=== PATIENT | male | born 1930 | race Caucasian/White ===

== ENCOUNTER 2016-12-10 10:14 | Observation (INO) | payer MEDICARE ==
[~2016-12-10] VITALS: Ht 175.3 cm; Wt 80.0 kg
[~2016-12-10 10:14] MED LIST: ARICEPT5 MG PO; ASPIRIN 32325 MG/TAB PO; CLOPIDOGREL PO; DOXYCYCLINE 10100 MG PO; FISH OIL CONC1000 MG PO; KLONOPIN 1MG1 MG PO; LAMICTAL 100MG100 MG PO; LEVOTHYROXINE0.05 M1 PO; LEVOXYL0.05 MG PO; LIPITOR 10MG10 MG PO; LOPRESSOR 225 MG/TAB PO; METOPROLOL SUCC25 MG PO; NAMENDA XR 28MG PO; NAMENDA5 MG PO; PRAVACHOL 40MG40 MG PO; RAZADYNE ER16 MG PO; REMERON SOLTAB30 MG PO; ZOFRAN ODT4 MG PO
[2016-12-10 11:24] LABS: BASO % 0.4 % (0.0-2.0); EOS # 0.1 (0.0-0.7); EOS % 2.5 % (0-4.0); GRAN # 3.1 (1.4-6.5); GRAN % 60.5 % (42.2-75.2); HEMATOCRIT 42.1 % (42.0-52.0); HEMOGLOBIN 14.6 g/dl (13.5-18.0); LYMPH # 1.3 (1.2-3.4); LYMPH % 25.7 % (20.0-51.0); MEAN CELL VOLUME 91 fl (80.0-100.0); MEAN CORPUSCULAR HEMOGLOBIN 31 pg (27.0-31.0); MEAN CORPUSCULAR HGB CONC 35 g/dl (33.0-37.0); MEAN PLATELET VOLUME 10.1 fl (7.4-10.4); MONO # 0.5 (0.1-0.6); MONO % 10.5 % (1.7-9.3); PLATELET COUNT 132 K/mm3 (130-400); RED BLOOD COUNT 4.65 M/mm3 (4.20-5.60); REDCELL DISTRIBUTION WIDTH-CV 13.5 % (11.5-14.5); WHITE BLOOD COUNT 5.1 K/mm3 (4.8-10.8)
[2016-12-10 11:31] LABS: ALANINE AMINOTRANSFERASE 31 U/L (21-72); ALBUMIN 4.6 gm/dL (3.5-5.0); ALKALINE PHOSPHATASE 70 U/L (50-136); ANION GAP 11 mmol/L (7-16); BLOOD UREA NITROGEN 22 mg/dL (9-20); CALCIUM 9.5 mg/dL (8.4-10.2); CARBON DIOXIDE 23 mmol/L (22-30); CHLORIDE 101 mmol/L (98-107); CREATININE, serum 1.37 mg/dL (0.66-1.25); GLUCOSE 87 mg/dL (74-106); LIPASE 50 U/L (23-300); POTASSIUM 4.4 mmol/L (3.4-5.0); SODIUM 135 mmol/L (137-145); TOTAL PROTEIN 7.2 gm/dL (6.4-8.2)
[2016-12-10 11:33] LABS: PROTHROMBIN TIME 11.4 SECONDS (9.7-12.8)
[2016-12-10 11:35] LABS: PARTIAL THROMBOPLASTIN TIME 34.1 SECONDS (26.0-37.0)
[2016-12-10 11:43] LABS: B-TYPE NATRIURETIC PEPTIDE 189 pg/mL (0-450); TROPONIN-I < 0.012 ng/mL (0.000-0.034)
[2016-12-10 14:42] VITALS: BP 150/59; PULSE 64; TEMP 97.5
[2016-12-10 16:11] VITALS: BP 155/75; PULSE 62; TEMP 97.4
[2016-12-10 16:14] VITALS: BP 150/59; PULSE 64; TEMP 97.5
[2016-12-10] MEDS ORDERED: ASPIRIN 81M81 MG/TA2 PO (20:19)
[2016-12-10 21:41] VITALS: BP 134/69; PULSE 60; TEMP 98.2
[2016-12-11] VITALS (10 sets, daily range): BP systolic 93–137; BP diastolic 43–97; PULSE 53–78; TEMP 97.3–98.3
[2016-12-11 07:05] LABS: ANION GAP 10 mmol/L (7-16); BLOOD UREA NITROGEN 22 mg/dL (9-20); CALCIUM 9.5 mg/dL (8.4-10.2); CARBON DIOXIDE 26 mmol/L (22-30); CHLORIDE 103 mmol/L (98-107); CHOLESTEROL 136 mg/dL (120-200); CREATININE, serum 1.37 mg/dL (0.66-1.25); GLUCOSE 83 mg/dL (74-106); HDL CHOLESTEROL 34 mg/dL; LDL CHOLESTEROL 60 mg/dL; POTASSIUM 4.4 mmol/L (3.4-5.0); SODIUM 139 mmol/L (137-145); TRIGLYCERIDE 212 mg/dL
[2016-12-11 07:18] LABS: TROPONIN-I < 0.012 ng/mL (0.000-0.034)
== END 2016-12-11 14:54 | disposition home or self-care (01) ==
LOC: COL.ER 10:14 → MEDICAL 12:30
PROVIDERS: Emergency Medicine; Physician Assistant
DX: I25.110 Atherosclerotic heart disease of native coronary artery with unstable angina pectoris (principal); I10 Essential (primary) hypertension; E78.5 Hyperlipidemia, unspecified; F03.90 Unspecified dementia, unspecified severity, without behavioral disturbance, psychotic disturbance, mood disturbance, and anxiety; E03.9 Hypothyroidism, unspecified; G47.33 Obstructive sleep apnea (adult) (pediatric); Z87.891 Personal history of nicotine dependence; M19.90 Unspecified osteoarthritis, unspecified site; I08.3 Combined rheumatic disorders of mitral, aortic and tricuspid valves; K21.9 Gastro-esophageal reflux disease without esophagitis; Z95.5 Presence of coronary angioplasty implant and graft; Z86.73 Personal history of transient ischemic attack (TIA), and cerebral infarction without residual deficits; N40.0 Benign prostatic hyperplasia without lower urinary tract symptoms; Z82.49 Family history of ischemic heart disease and other diseases of the circulatory system; Z80.3 Family history of malignant neoplasm of breast
CPT/HCPCS: 99222-AI; 99239; A9502; G0378; J2785

== ENCOUNTER → 2016-12-16 | Outpatient (CLI) | payer MEDICARE ==
[~2016-12-16] MED LIST changes: +ARICEPT10 MG PO; +ASPIRIN 81M81 MG/TA2 PO; +CEPHALEXIN500 M1 PO; +MULTI VITAMINS1 TAB PO; +NAMENDA 10MG TA10 MG PO; +OMEGA-3 1000 MG1 CAP PO; +REMERON30 MG PO; +SYNTHROID0.05 MG/TA PO; +TOPROL XL 25MG25 MG PO; +TYLENOL 325MG325 MG PO
== END ==
LOC: COL.VAS 14:00
DX: I65.23 Occlusion and stenosis of bilateral carotid arteries (principal); R07.9 Chest pain, unspecified

== ENCOUNTER 2017-01-05 07:04 | Outpatient (CLI) | payer MEDICARE ==
[~2017-01-05] VITALS: Ht 172.8 cm; Wt 82.0 kg
[2017-01-05] VITALS (12 sets, daily range): BP systolic 121–169; BP diastolic 60–86; PULSE 56–80; TEMP 96.9
[~2017-01-05 07:04] MED LIST changes: -ARICEPT10 MG PO; -CEPHALEXIN500 M1 PO; -MULTI VITAMINS1 TAB PO; -NAMENDA 10MG TA10 MG PO; -OMEGA-3 1000 MG1 CAP PO; -REMERON30 MG PO; -SYNTHROID0.05 MG/TA PO; -TOPROL XL 25MG25 MG PO; -TYLENOL 325MG325 MG PO
[2017-01-05 07:42] LABS: HEMOGLOBIN 14.2 g/dl (13.5-18.0); MEAN CELL VOLUME 91 fl (80.0-100.0); MEAN CORPUSCULAR HEMOGLOBIN 31 pg (27.0-31.0); MEAN CORPUSCULAR HGB CONC 35 g/dl (33.0-37.0); MEAN PLATELET VOLUME 9.9 fl (7.4-10.4); PLATELET COUNT 153 K/mm3 (130-400); RED BLOOD COUNT 4.52 M/mm3 (4.20-5.60); REDCELL DISTRIBUTION WIDTH-CV 13.5 % (11.5-14.5)
[2017-01-05 07:49] LABS: PROTHROMBIN TIME 11.5 SECONDS (9.7-12.8)
[2017-01-05 07:58] LABS: CALCIUM 9.3 mg/dL (8.4-10.2); CREATININE, serum 1.32 mg/dL (0.66-1.25); POTASSIUM 4.5 mmol/L (3.4-5.0)
[2017-01-05] MEDS ORDERED: ARICEPT10 MG PO (08:15)
[2017-01-05] MEDS ORDERED: SYNTHROID0.05 MG/TA PO (08:15)
[2017-01-05] MEDS ORDERED: REMERON30 MG PO (08:18)
[2017-01-05] MEDS ORDERED: TOPROL XL 25MG25 MG PO (08:18)
[2017-01-05] MEDS ORDERED: PRAVACHOL 40MG40 MG PO (08:20)
[2017-01-05] MEDS ORDERED: NAMENDA 10MG TA10 MG PO (08:20)
[2017-01-05] MEDS ORDERED: RAZADYNE ER16 MG PO (08:21)
[2017-01-05] MEDS ORDERED: OMEGA-3 1000 MG1 CAP PO (08:24)
[2017-01-05] MEDS ORDERED: MULTI VITAMINS1 TAB PO (08:24)
[2017-01-05] MEDS ORDERED: TYLENOL 325MG325 MG PO (08:25)
[2017-01-05] MEDS ORDERED: ASPIRIN 81M81 MG/TA2 PO (08:25)
[2017-01-05] MEDS ORDERED: CEPHALEXIN500 M1 PO (09:40)
== END 2017-01-05 11:17 | disposition home or self-care (01) ==
LOC: COL.RAD 07:04
PROVIDERS: Internal Medicine Cardiovascular Disease
DX: R55 Syncope and collapse (principal); Z45.018 Encounter for adjustment and management of other part of cardiac pacemaker; I25.10 Atherosclerotic heart disease of native coronary artery without angina pectoris; Z95.5 Presence of coronary angioplasty implant and graft; I10 Essential (primary) hypertension; E78.5 Hyperlipidemia, unspecified; R00.2 Palpitations; Z86.73 Personal history of transient ischemic attack (TIA), and cerebral infarction without residual deficits
CPT/HCPCS: C1764; J2250; J3010

== ENCOUNTER 2017-12-18 16:50 | Emergency (ER) | payer MEDICARE ==
[~2017-12-18] VITALS: Ht 175.3 cm; Wt 75.0 kg
[~2017-12-18 16:50] MED LIST changes: +ARICEPT10 MG PO; +CEPHALEXIN500 M1 PO; +MULTI VITAMINS1 TAB PO; +NAMENDA 10MG TA10 MG PO; +OMEGA-3 1000 MG1 CAP PO; +REMERON30 MG PO; +SYNTHROID0.05 MG/TA PO; +TOPROL XL 25MG25 MG PO; +TYLENOL 325MG325 MG PO
[2017-12-18] MEDS ORDERED: ARICEPT 5MG PO (17:17)
[2017-12-18 17:34] LABS: BASO % 0.3 % (0.0-2.0); EOS # 0.2 (0.0-0.7); EOS % 2.3 % (0-4.0); GRAN # 4.3 (1.4-6.5); HEMATOCRIT 37.9 % (42.0-52.0); HEMOGLOBIN 13.5 g/dl (13.5-18.0); INR 1.1 (0.8-3.0); LYMPH # 1.6 (1.2-3.4); LYMPH % 22.6 % (20.0-51.0); MEAN CELL VOLUME 90 fl (80.0-100.0); MEAN CORPUSCULAR HEMOGLOBIN 32 pg (27.0-31.0); MEAN CORPUSCULAR HGB CONC 36 g/dl (33.0-37.0); MEAN PLATELET VOLUME 9.6 fl (7.4-10.4); MONO # 0.8 (0.1-0.6); MONO % 11.2 % (1.7-9.3); PLATELET COUNT 161 K/mm3 (130-400); PROTHROMBIN TIME 12.2 SECONDS (9.7-12.8); RED BLOOD COUNT 4.22 M/mm3 (4.20-5.60); REDCELL DISTRIBUTION WIDTH-CV 13.7 % (11.5-14.5)
[2017-12-18 17:39] LABS: ALANINE AMINOTRANSFERASE 30 U/L (21-72); ALBUMIN 4.2 gm/dL (3.5-5.0); ALKALINE PHOSPHATASE 64 U/L (50-136); ANION GAP 12 mmol/L (7-16); AST,SGOT 34 U/L (15-37); BILIRUBIN,TOTAL 0.7 mg/dL (0.0-1.0); BLOOD UREA NITROGEN 25 mg/dL (9-20); CALCIUM 8.4 mg/dL (8.4-10.2); CARBON DIOXIDE 21 mmol/L (22-30); CHLORIDE 101 mmol/L (98-107); CREATINE KINASE 68 U/L (55-170); CREATININE, serum 1.23 mg/dL (0.66-1.25); GLUCOSE 102 mg/dL (74-106); LIPASE 38 U/L (23-300); POTASSIUM 4.2 mmol/L (3.4-5.0); SODIUM 133 mmol/L (137-145); TOTAL PROTEIN 6.8 gm/dL (6.4-8.2)
[2017-12-18 17:51] LABS: TROPONIN-I < 0.012 ng/mL (0.000-0.034)
[2017-12-18 20:28] VITALS: BP 175/92; PULSE 63
== END 2017-12-18 20:30 | disposition home or self-care (01) ==
LOC: COL.ER 16:50
PROVIDERS: Emergency Medicine
DX: R07.89 Other chest pain (principal); I10 Essential (primary) hypertension; I25.10 Atherosclerotic heart disease of native coronary artery without angina pectoris; Z98.890 Other specified postprocedural states; Z95.5 Presence of coronary angioplasty implant and graft; Z79.82 Long term (current) use of aspirin

== ENCOUNTER 2019-03-25 08:52 | Emergency (ER) | payer MEDICARE, OTHER ==
[~2019-03-25] VITALS: Ht 175.3 cm; Wt 81.8 kg
[~2019-03-25 08:52] MED LIST changes: +ARICEPT 5MG PO
[2019-03-25 09:21] LABS: ALANINE AMINOTRANSFERASE 21 U/L (21-72); ALBUMIN 4.5 gm/dL (3.5-5.0); ALKALINE PHOSPHATASE 70 U/L (50-136); ANION GAP 9 mmol/L (7-16); AST,SGOT 24 U/L (15-37); BILIRUBIN,TOTAL 0.6 mg/dL (0.0-1.0); BLOOD UREA NITROGEN 30 mg/dL (9-20); CALCIUM 9.3 mg/dL (8.4-10.2); CARBON DIOXIDE 26 mmol/L (22-30); CHLORIDE 103 mmol/L (98-107); CREATININE, serum 1.46 (0.66-1.25); GLUCOSE 91 mg/dL (74-106); LIPASE 60 U/L (23-300); POTASSIUM 4.7 mmol/L (3.4-5.0); SODIUM 138 mmol/L (137-145); TOTAL PROTEIN 7.3 gm/dL (6.4-8.2)
[2019-03-25 09:26] LABS: BASO % 0.4 % (0.0-2.0); EOS # 0.2 (0.0-0.7); EOS % 2.9 % (0-4.0); GRAN # 4.2 (1.4-6.5); GRAN % 60.2 % (42.2-75.2); HEMATOCRIT 41.5 % (42.0-52.0); LYMPH # 1.8 (1.2-3.4); LYMPH % 25.9 % (20.0-51.0); MEAN CELL VOLUME 94 fl (80.0-100.0); MEAN CORPUSCULAR HEMOGLOBIN 32 pg (27.0-31.0); MEAN CORPUSCULAR HGB CONC 34 g/dl (33.0-37.0); MEAN PLATELET VOLUME 9.6 fl (7.4-10.4); MONO # 0.7 (0.1-0.6); MONO % 10.3 % (1.7-9.3); PLATELET COUNT 158 K/mm3 (130-400); RED BLOOD COUNT 4.43 M/mm3 (4.20-5.60); REDCELL DISTRIBUTION WIDTH-CV 13.8 % (11.5-14.5)
[2019-03-25 09:34] LABS: TROPONIN-I < 0.012 ng/mL (0.000-0.035)
[2019-03-25] MEDS ORDERED: LEXAPRO 10MG10 MG PO (09:34)
[2019-03-25] MEDS ORDERED: NAMENDA 10MG TA10 MG PO (09:34)
[2019-03-25 09:48] LABS: PROTHROMBIN TIME 12.1 SECONDS (9.7-12.8)
[2019-03-25 10:15] VITALS: BP 157/64; PULSE 69
== END 2019-03-25 10:40 | disposition short-term general hospital (02) ==
LOC: COL.ER 08:52
PROVIDERS: Emergency Medicine
DX: I21.9 Acute myocardial infarction, unspecified (principal); I25.10 Atherosclerotic heart disease of native coronary artery without angina pectoris; Z86.73 Personal history of transient ischemic attack (TIA), and cerebral infarction without residual deficits; Z95.9 Presence of cardiac and vascular implant and graft, unspecified; Z79.82 Long term (current) use of aspirin
CPT/HCPCS: J1644; J7030

== ENCOUNTER 2020-01-03 05:45 | Day surgery (SDC) | payer MEDICARE ==
[2020-01-03] VITALS (11 sets, daily range): BP systolic 120–171; BP diastolic 37–68; PULSE 56–71; TEMP 97.4–98.6
[~2020-01-03 05:45] MED LIST changes: +LEXAPRO 10MG10 MG PO
[2020-01-03] MEDS ORDERED: SYNTHROID0.05 MG/TA PO (06:09)
[2020-01-03] MEDS ORDERED: ARICEPT10 MG PO (06:09)
[2020-01-03] MEDS ORDERED: NAMENDA 10MG TA10 MG PO (06:09)
[2020-01-03] MEDS ORDERED: TOPROL XL 50MG50 MG PO (06:10)
[2020-01-03] MEDS ORDERED: REMERON30 MG PO (06:11)
[2020-01-03] MEDS ORDERED: PRAVACHOL 40MG40 MG PO (06:11)
[2020-01-03] MEDS ORDERED: NITROSTAT0.4 MG/TAB SL (06:11)
[2020-01-03] MEDS ORDERED: EPA FISH OIL1 SGL PO (06:12)
[2020-01-03] MEDS ORDERED: TYLENOL PM EXTR1 TA1 PO (06:12)
[2020-01-03] MEDS ORDERED: ASPIRIN 81M81 MG/TA2 PO (06:12)
[2020-01-04 02:15] VITALS: BP 125/66
[2020-01-04 03:44] VITALS: BP 101/39; PULSE 66; TEMP 97.6
[2020-01-04 07:06] VITALS: BP 158/65; PULSE 67; TEMP 97.8
[2020-01-04 11:52] VITALS: BP 137/54; PULSE 63; TEMP 97.8
== END 2020-01-04 15:40 | disposition home or self-care (01) ==
LOC: SDCO 05:45 → SURG 09:06 → SDCO 09:06 → SURG 01-04 15:40
DX: N40.1 Benign prostatic hyperplasia with lower urinary tract symptoms (principal); R33.9 Retention of urine, unspecified; N39.490 Overflow incontinence; I25.10 Atherosclerotic heart disease of native coronary artery without angina pectoris; E78.00 Pure hypercholesterolemia, unspecified; I10 Essential (primary) hypertension; G30.9 Alzheimer's disease, unspecified; F02.80 Dementia in other diseases classified elsewhere, unspecified severity, without behavioral disturbance, psychotic disturbance, mood disturbance, and anxiety; M19.90 Unspecified osteoarthritis, unspecified site; Z86.73 Personal history of transient ischemic attack (TIA), and cerebral infarction without residual deficits; G89.29 Other chronic pain; Z87.891 Personal history of nicotine dependence
CPT/HCPCS: J0690; J2704; J7030; J7120

== ENCOUNTER 2020-02-22 18:57 | Inpatient (IN) | payer MEDICARE ==
[~2020-02-22] VITALS: Ht 170.2 cm; Wt 70.8 kg
[~2020-02-22 18:57] MED LIST changes: +EPA FISH OIL1 SGL PO; +NITROSTAT0.4 MG/TAB SL; +TOPROL XL 50MG50 MG PO; +TYLENOL PM EXTR1 TA1 PO
[2020-02-22 19:31] LABS: BASO % 0.1 % (0.0-2.0); EOS % 0.2 % (0-4.0); GRAN # 14.2 (1.4-6.5); GRAN % 85.8 % (42.2-75.2); HEMOGLOBIN 10.7 g/dl (13.5-18.0); LYMPH # 0.9 (1.2-3.4); LYMPH % 5.4 % (20.0-51.0); MEAN CELL VOLUME 90 fl (80.0-100.0); MEAN CORPUSCULAR HEMOGLOBIN 30 pg (27.0-31.0); MEAN CORPUSCULAR HGB CONC 33 g/dl (33.0-37.0); MEAN PLATELET VOLUME 8.2 fl (7.4-10.4); MONO # 1.3 (0.1-0.6); MONO % 7.8 % (1.7-9.3); PLATELET COUNT 245 K/mm3 (130-400); RED BLOOD COUNT 3.62 M/mm3 (4.20-5.60); REDCELL DISTRIBUTION WIDTH-CV 14.2 % (11.5-14.5)
[2020-02-22 19:34] LABS: HEMATOCRIT 32.6 % (42.0-52.0)
[2020-02-22 19:42] LABS: ALBUMIN 4.4 gm/dL (3.5-5.0); BILIRUBIN,TOTAL 0.6 mg/dL (0.0-1.0); CALCIUM 9.1 mg/dL (8.4-10.2); CREATININE, serum 2.34 (0.66-1.25); POTASSIUM 5.4 mmol/L (3.4-5.0); TOTAL PROTEIN 8.2 gm/dL (6.4-8.2)
[2020-02-22] MEDS ORDERED: VITAMIN C500 MG PO (19:42)
[2020-02-22 19:53] LABS: C-REACTIVE PROTEIN 17.9 mg/dL (0.0-0.9)
[2020-02-22 20:20] LABS: COLLECTION METHOD CATHETER
[2020-02-22 20:28] LABS: PH 5 (5-8); SQUAMOUS EPITHELIAL None Seen /hpf; URINE APPEARANCE Turbid; URINE BACTERIA Occasional /hpf; URINE BILIRUBIN Negative (NEGATIVE); URINE BLOOD 2+ (NEGATIVE); URINE COLOR Amber; URINE GLUCOSE Negative (NEGATIVE); URINE KETONE Negative (NEGATIVE); URINE LEUKOCYTE ESTERASE 2+ (NEGATIVE); URINE NITRATE Negative (NEGATIVE); URINE PROTEIN(semi-quant) 2+ (NEGATIVE); URINE RBC 20-50 /hpf; URINE UROBILINOGEN Negative (NEGATIVE)
[2020-02-22 21:45] VITALS: BP 116/49; PULSE 80; TEMP 98.4
[2020-02-23] VITALS (7 sets, daily range): BP systolic 134–163; BP diastolic 55–69; PULSE 77–102; TEMP 97.9–100.9
[2020-02-23 00:14] LABS: INR 1.3 (0.8-3.0); PROTHROMBIN TIME 14.8 SECONDS (9.7-12.8)
--- NOTE | 2020-02-23 02:57 | NUR ---
Patient is diaphoretic, cool and clammy at this time. He also has developed a tremor in his extremities and fingertips develop a decreased cap refill. Pulses are still present and strong. He is still confused, which is his baseline. [place] box provided, per patient request. BG is 112. Vital signs are stable and patient is afebrile. Charge nurse and greenhouse worker notified for further assessment. NS infusing and allen has adequate output. Will continue to monitor.
--- NOTE | 2020-02-23 05:39 | NUR ---
Partial bed bath and comfort measures provided. Patient is no longer diaphoretic and tremors have decreased. He has remained afebrile. He did have an episode of increased work of breathing which resolved within minutes. He is close to nurse's station and can be seen easily. Will continue to monitor.
[2020-02-23 06:30] LABS: MEAN CELL VOLUME 92 fl (80.0-100.0); MEAN CORPUSCULAR HGB CONC 33 g/dl (33.0-37.0); MEAN PLATELET VOLUME 8.7 fl (7.4-10.4); PLATELET COUNT 211 K/mm3 (130-400); REDCELL DISTRIBUTION WIDTH-CV 14.5 % (11.5-14.5)
[2020-02-23 06:38] LABS: INR 1.3 (0.8-3.0); PROTHROMBIN TIME 14.2 SECONDS (9.7-12.8)
[2020-02-23 06:41] LABS: HEMATOCRIT 27.5 % (42.0-52.0); HEMOGLOBIN 9.1 g/dl (13.5-18.0); MEAN CORPUSCULAR HEMOGLOBIN 30 pg (27.0-31.0)
[2020-02-23 06:41] LABS: ALBUMIN 3.5 gm/dL (3.5-5.0); BILIRUBIN,TOTAL 0.3 mg/dL (0.0-1.0); CREATININE, serum 1.89 (0.66-1.25); POTASSIUM 4.6 mmol/L (3.4-5.0); TOTAL PROTEIN 6.6 gm/dL (6.4-8.2)
[2020-02-23 07:35] LABS: BAND 8 % (0-10); LYMPHOCYTE 7 % (20.0-51.0); NEUTROPHILS 74 % (42.0-75.2); PLATELET ESTIMATE NORMAL (NORMAL)
--- NOTE | 2020-02-23 08:38 | NUR ---
Pt resting in bed at this time. Pt is very confused this morning, is only oriented to person. States he is not in pain at this time. Student Nurse, Lashanda will be assisting with patient today. Assessment completed, no further concerns. Bed alarm on, call light within reach.
--- NOTE | 2020-02-23 09:19 | NUR ---
Initial visit; Patient, though exhibiting confusion with his words seemed aware of Television Parts Tester visiting and was receptive to prayer.
--- NOTE | 2020-02-23 11:43 | NUR ---
Procurement Technician met with patient and patient's , Colette (ph#[phone]) to discuss discharge planning. Patient and Colette live in the [facility] [place] at [facility]. Patient sees Dr. Bermudez for primary care and has medications mailed to him by [facility]. Patient also obtains medications from [facility] as needed. Patient has a cane and walker at home. Patient reports he can take his own shower but sometimes Colette has to assist with getting dressed. Patient has Advance Directives in EMR and DPOA- designates Colette as primary then their sons, Aguilar and Tez. ALIE reviewed recommendation for Home Health services and provided Medicare.gov list of HH agencies. Colette advised they may want HH but they also would like to consider a skilled stay at [facility]. ALIE contacted Vincenzo at [facility] then faxed referral. ALIE requested COVID test from SUSAN Cheney and will continue to follow.
--- NOTE | 2020-02-23 13:45 | NUR ---
Primary nurse was assisted with [id number] patient care by [facility] student Dawn Rodriguez and [facility] instructor Judy Hurst RN-.
--- NOTE | 2020-02-23 14:58 | NUR ---
Pt sleeping at this time will continue to monitor.
--- NOTE | 2020-02-23 21:30 | NUR ---
Pt assessment completed and charted, alert, not fully oriented, roomair. Meds provided as per JUL, tolerated well. Pt is settled on his bed, call light on reach, bed alaram is on. Folley and I/V on place. No further needs at this time.
[2020-02-24 03:11] VITALS: BP 179/70; PULSE 84; TEMP 98
[2020-02-24 04:14] VITALS: BP 142/67
--- NOTE | 2020-02-24 05:23 | NUR ---
Pt had an uneventful night. Morning meds provided as per JUL. No further needs at this time.
[2020-02-24 07:14] LABS: BASO % 0.2 % (0.0-2.0); EOS # 0.1 (0.0-0.7); EOS % 0.6 % (0-4.0); GRAN # 9.8 (1.4-6.5); GRAN % 80.1 % (42.2-75.2); HEMATOCRIT 26.6 % (42.0-52.0); HEMOGLOBIN 8.7 g/dl (13.5-18.0); LYMPH # 1.1 (1.2-3.4); LYMPH % 9.4 % (20.0-51.0); MEAN CELL VOLUME 92 fl (80.0-100.0); MEAN CORPUSCULAR HEMOGLOBIN 30 pg (27.0-31.0); MEAN CORPUSCULAR HGB CONC 33 g/dl (33.0-37.0); MEAN PLATELET VOLUME 8.8 fl (7.4-10.4); MONO # 1.1 (0.1-0.6); MONO % 8.7 % (1.7-9.3); PLATELET COUNT 194 K/mm3 (130-400); REDCELL DISTRIBUTION WIDTH-CV 14.4 % (11.5-14.5)
[2020-02-24 07:17] LABS: INR 1.3 (0.8-3.0); PROTHROMBIN TIME 14.9 SECONDS (9.7-12.8)
[2020-02-24 07:28] LABS: ALBUMIN 3.4 gm/dL (3.5-5.0); BILIRUBIN,TOTAL 0.4 mg/dL (0.0-1.0); CALCIUM 8.1 mg/dL (8.4-10.2); CREATININE, serum 1.77 (0.66-1.25); POTASSIUM 4.1 mmol/L (3.4-5.0); TOTAL PROTEIN 6.6 gm/dL (6.4-8.2)
--- NOTE | 2020-02-24 07:29 | NUR ---
Pt in bed has no c/o pain or discomfort. Assessment completed. Call light within reach. No further concerns at this time. Student Nurse Dawn is assissting today.
--- NOTE | 2020-02-24 07:44 | NUR ---
Pt resting in bed at this time and appears to be in good spirits, laughing and asking questions about cares being provided. Patient is currently watching the news and drinking a glass of water. Will continue to monitor.
[2020-02-24 07:47] VITALS: BP 157/58; PULSE 80; TEMP 98.6
[2020-02-24 12:10] VITALS: BP 100/47; PULSE 67; TEMP 98.6
--- NOTE | 2020-02-24 13:37 | NUR ---
Primary nurse was assisted with [id number] patient care by [facility] student Dawn Rodriguez and [facility] instructor Judy Hurst RN-.
[2020-02-24 16:11] VITALS: BP 141/69; PULSE 75; TEMP 97.6
[2020-02-24 19:58] VITALS: BP 130/56; PULSE 80; TEMP 99.2
--- NOTE | 2020-02-24 21:15 | NUR ---
Pt assessment completed and documented. Pt resting in bed at this time. Pt alert and oriented to person, place and time. Pt disoriented to situation. IVF infusing per order to left AC IV. Denies pain. Pt denies any other needs/concerns at this time. Call light within reach. Fall precautions in place. Bed alarm on. Will continue to monitor.
[2020-02-25] VITALS (7 sets, daily range): BP systolic 131–169; BP diastolic 48–77; PULSE 70–86; TEMP 97.5–98.7
--- NOTE | 2020-02-25 05:12 | NUR ---
Pt has rested well overnight. Pt has remained partially oriented throughout the night. No complaints of pain. IVF infusing per orders. Pt denies any needs/concerns at this time. Call light within reach. Bed alarm on. Will continue to monitor
[2020-02-25 06:30] LABS: BASO % 0.3 % (0.0-2.0); EOS # 0.3 (0.0-0.7); EOS % 3.5 % (0-4.0); GRAN % 76.3 % (42.2-75.2); LYMPH # 0.9 (1.2-3.4); LYMPH % 9.4 % (20.0-51.0); MEAN CELL VOLUME 90 fl (80.0-100.0); MEAN CORPUSCULAR HGB CONC 33 g/dl (33.0-37.0); MEAN PLATELET VOLUME 8.9 fl (7.4-10.4); MONO # 0.9 (0.1-0.6); MONO % 9.4 % (1.7-9.3); PLATELET COUNT 202 K/mm3 (130-400); RED BLOOD COUNT 2.83 M/mm3 (4.20-5.60); REDCELL DISTRIBUTION WIDTH-CV 14.2 % (11.5-14.5)
[2020-02-25 06:35] LABS: INR 1.3 (0.8-3.0); PROTHROMBIN TIME 14.5 SECONDS (9.7-12.8)
--- NOTE | 2020-02-25 06:40 | NUR ---
PATIENT SLEEPING IN BED.
[2020-02-25 06:41] LABS: ALBUMIN 3.2 gm/dL (3.5-5.0); BILIRUBIN,TOTAL 0.4 mg/dL (0.0-1.0); CALCIUM 8.1 mg/dL (8.4-10.2); CREATININE, serum 1.72 (0.66-1.25); POTASSIUM 4.3 mmol/L (3.4-5.0); TOTAL PROTEIN 6.1 gm/dL (6.4-8.2)
[2020-02-25 06:42] LABS: HEMATOCRIT 25.5 % (42.0-52.0); HEMOGLOBIN 8.3 g/dl (13.5-18.0); MEAN CORPUSCULAR HEMOGLOBIN 29 pg (27.0-31.0)
--- NOTE | 2020-02-25 08:16 | NUR ---
PATIENT ASSESSMENT COMPLETED. HE IS ASSISTED UP TO THE CHAIR FOR BREAKFAST. DENIES PAIN OR OTHER NEEDS. EATING BREAKFAST ON HIS OWN
--- NOTE | 2020-02-25 20:06 | NUR ---
Pt assessment completed and documented. Pt resting in bed at this time watching television. Pt alert and oriented to person and time. Pt disoriented to place and situation. IVF infusing per orders to right AC IV. Pt denies pain. Pt denies any needs/concerns at this time. Call light within reach. Fall precautions in place. Bed alarm on. Will continue to monitor
[2020-02-26 03:23] VITALS: BP 168/68; PULSE 74; TEMP 98.3
--- NOTE | 2020-02-26 05:45 | NUR ---
Pt awake most of the night. States he was unable to sleep because he rested yesterday afternoon. Pt remained pleasantly confused overnight and was only oriented to time and person. Pt disoriented to place and situation during the night. IVF infusing per orders to right AC IV. Pt denies any needs/ concerns. Call light within reach. Bed alarm on. WIll continue to monitor
[2020-02-26 07:10] LABS: MEAN CELL VOLUME 90 fl (80.0-100.0); MEAN CORPUSCULAR HGB CONC 33 g/dl (33.0-37.0); MEAN PLATELET VOLUME 9.2 fl (7.4-10.4); PLATELET COUNT 231 K/mm3 (130-400); RED BLOOD COUNT 3.01 M/mm3 (4.20-5.60); REDCELL DISTRIBUTION WIDTH-CV 14.2 % (11.5-14.5)
[2020-02-26 07:17] LABS: HEMOGLOBIN 8.9 g/dl (13.5-18.0); MEAN CORPUSCULAR HEMOGLOBIN 30 pg (27.0-31.0)
[2020-02-26 07:23] LABS: CALCIUM 8.3 mg/dL (8.4-10.2); CREATININE, serum 1.63 (0.66-1.25); POTASSIUM 4.1 mmol/L (3.4-5.0)
[2020-02-26 07:47] VITALS: BP 135/68; PULSE 78; TEMP 97.5
--- NOTE | 2020-02-26 08:02 | NUR ---
PATIENT ASSESSMENT COMPLETED. WE WENT FOR A WALK WITH GAITBELT AND WALKER. WE WALKED FROM ROOM 313 TO THE JOINT DESK AND BACK. HE TOLERATES WELL. BREAKFAST HAS ARRIVED AND NO OTHER NEEDS EXPRESSED
--- NOTE | 2020-02-26 08:04 | NUR ---
PATIENT IS SLIGHLTY CONFUSED THIS MORNING HE KNOWS MONTH AND YEAR BUT STRUGGLES WITH HOSPITAL BUT ALSO IS TALKING ABOUT THE BUS BREAKING DOWN AND HAVING PEOPLE ON THE BUS. HE IS ALSO SITTING THERE EATING BREAKFAST TRYING TO TALK TO HIS THAT IS CURRENTLY NOT HERE SHE IS AT HOME. CHAIR ALARM ON
[2020-02-26 09:05] LABS: BAND 10 % (0-10); EOSINOPHIL 3 % (0-4); LYMPHOCYTE 16 % (20.0-51.0); NEUTROPHILS 64 % (42.0-75.2)
[2020-02-26 09:06] LABS: PLATELET ESTIMATE NORMAL (NORMAL)
[2020-02-26 11:37] VITALS: BP 98/47; PULSE 71; TEMP 97.5
--- NOTE | 2020-02-26 14:15 | NUR ---
Provider inquired about patients currently living conditions, and services available for patient after discharge. ALIE reviewed previous notes and determined carla jiménez resides at [facility] independent living with his Colette [phone]. ALIE contacted Tanmay at [facility] to inquire about patient receiving skilled services. Vincenzo replied that patient would be able to receive service if he med stay requirments. ALIE informed provider, who indicated that patient would be released tomorrow.
[2020-02-26 16:03] VITALS: BP 136/64; PULSE 77; TEMP 97.4
--- NOTE | 2020-02-26 19:00 | NUR ---
Pt was setting on recliner when this nurse went for bedside handover. Pt seems relaxed and was watching television. Will keep monitoring him.
[2020-02-26 19:15] VITALS: BP 137/92; PULSE 77; TEMP 97.7
--- NOTE | 2020-02-26 22:53 | NUR ---
Pt assessment completed and charted, alert but not fully oriented, roomair. Meds provided as per JUL, tolerated well. Pt is settled on his bed, call light on reach, bed alarm is on. No further needs at this time.
[2020-02-26 23:34] VITALS: BP 154/78; PULSE 75; TEMP 97.8
[2020-02-27 03:28] VITALS: BP 151/77; PULSE 72; TEMP 97.9
--- NOTE | 2020-02-27 05:23 | NUR ---
Pt had an uneventful night, slept ton and off through out the light. No further needs at this time.
[2020-02-27 07:38] VITALS: BP 138/76; PULSE 65; TEMP 97.6
[2020-02-27] MEDS ORDERED: NORVASC 5MG5 MG/TAB PO (09:46)
[2020-02-27] MEDS ORDERED: LEVAQUIN 750MG750 M1 PO (09:53)
--- NOTE | 2020-02-27 10:54 | NUR ---
First visit from the returned goods sorter. No needs right now.
--- NOTE | 2020-02-27 11:12 | NUR ---
Patient alert and oriented to self only, denies any pain at this time. Patient sit up in bed to eat breakfast this morning. visiting at bedside. The plan is for patient to discharge to [facility] nurse facility.
[2020-02-27 11:46] VITALS: BP 119/46; PULSE 59; TEMP 97.7
[2020-02-27 13:43] VITALS: BP 119/46; PULSE 59; TEMP 97.7
--- NOTE | 2020-02-27 13:44 | NUR ---
The patient is to discharge today, 02/26 to [facility] for a skilled stay. Then he will go back to his home at [facility]. The patient is to be transported at 1415. The team, the patient, and the patient's , Colette were in agreeance. SW faxed discharge orders. ALIE presented the IM form to the patient and Colette. They understood and the patient wanted Colette to sign the form. Form signed. A copy was provided to the patient and original was placed in the chart. There are no additional needs at this time.
--- NOTE | 2020-02-27 14:48 | NUR ---
RN called [facility] to give transfer report to Nurse Mani. Patient remain afebrile, moderate confusion without any agitation. WBC within limit.INT on left forearm discontinued. Spouse help gather patient's belongings. patient was started on Levaquin 750mg Q48H, first dose was giving this am, the remaining two dose should be taken 02/28, 03/02. Instruction given to recieving nurse. Patient discharging with Leach catheter with a followup appointment with Urology. Patient discharged.
== END 2020-02-27 14:45 | disposition home or self-care (01) | DRG 871 ==
LOC: COL.ER 18:57 → MEDICAL 20:31
PROVIDERS: Internal Medicine Pulmonary Disease; Nurse Practitioner; ADMIT Internal Medicine
DX: A41.9 Sepsis, unspecified organism (principal); G93.41 Metabolic encephalopathy; N17.9 Acute kidney failure, unspecified; N39.0 Urinary tract infection, site not specified; R65.20 Severe sepsis without septic shock; N40.1 Benign prostatic hyperplasia with lower urinary tract symptoms; R33.8 Other retention of urine; E87.5 Hyperkalemia; I25.10 Atherosclerotic heart disease of native coronary artery without angina pectoris; F03.90 Unspecified dementia, unspecified severity, without behavioral disturbance, psychotic disturbance, mood disturbance, and anxiety; E03.9 Hypothyroidism, unspecified; E11.22 Type 2 diabetes mellitus with diabetic chronic kidney disease; I12.9 Hypertensive chronic kidney disease with stage 1 through stage 4 chronic kidney disease, or unspecified chronic kidney disease; N18.30 Chronic kidney disease, stage 3 unspecified; Z95.5 Presence of coronary angioplasty implant and graft
CPT/HCPCS: 99223-AI; 99232-AI; 99233-AI; 99239; J0360; J0692; J0696; J1644; J2543; J7030

== ENCOUNTER 2020-05-09 09:48 | Inpatient (IN) | payer MEDICARE ==
[~2020-05-09] VITALS: Ht 175.3 cm; Wt 79.3 kg
[~2020-05-09 09:48] MED LIST changes: +LEVAQUIN 750MG750 M1 PO; +NORVASC 5MG5 MG/TAB PO; +VITAMIN C500 MG PO
[2020-05-09 10:34] LABS: BASO % 0.2 % (0.0-2.0); EOS # 0.2 (0.0-0.7); EOS % 1.8 % (0-4.0); GRAN # 7.1 (1.4-6.5); GRAN % 69.6 % (42.2-75.2); HEMOGLOBIN 11.1 g/dl (13.5-18.0); LYMPH # 1.7 (1.2-3.4); LYMPH % 16.2 % (20.0-51.0); MEAN CELL VOLUME 91 fl (80.0-100.0); MEAN CORPUSCULAR HEMOGLOBIN 30 pg (27.0-31.0); MEAN CORPUSCULAR HGB CONC 33 g/dl (33.0-37.0); MEAN PLATELET VOLUME 9.1 fl (7.4-10.4); MONO # 1.2 (0.1-0.6); MONO % 11.5 % (1.7-9.3); PLATELET COUNT 202 K/mm3 (130-400); RED BLOOD COUNT 3.76 M/mm3 (4.20-5.60); REDCELL DISTRIBUTION WIDTH-CV 15.5 % (11.5-14.5)
[2020-05-09 10:36] LABS: INR 1.2 (0.8-3.0); PROTHROMBIN TIME 13.4 SECONDS (9.7-12.8)
[2020-05-09 10:37] LABS: HEMATOCRIT 34.1 % (42.0-52.0)
[2020-05-09 10:42] LABS: ALANINE AMINOTRANSFERASE 17 U/L (4-49); ALBUMIN 4.2 gm/dL (3.5-5.0); ALKALINE PHOSPHATASE 76 U/L (50-136); ANION GAP 10 mmol/L (7-16); AST,SGOT 24 U/L (15-37); BILIRUBIN,TOTAL 0.6 mg/dL (0.0-1.0); BLOOD UREA NITROGEN 54 mg/dL (9-20); CALCIUM 9.2 mg/dL (8.4-10.2); CARBON DIOXIDE 21 mmol/L (22-30); CHLORIDE 105 mmol/L (98-107); CREATININE, serum 3.13 (0.66-1.25); GLUCOSE 93 mg/dL (74-106); POTASSIUM 4.8 mmol/L (3.4-5.0); SODIUM 136 mmol/L (137-145); TOTAL PROTEIN 7.3 gm/dL (6.4-8.2)
[2020-05-09 10:53] LABS: C-REACTIVE PROTEIN 24.2 mg/dL (0.0-0.9); TROPONIN-I < 0.012 ng/mL (0.000-0.035)
[2020-05-09] MEDS ORDERED: NAMENDA 10MG TA10 MG PO (11:25)
[2020-05-09 12:07] LABS: COLLECTION METHOD CATHETER
[2020-05-09 12:17] LABS: PH 6 (5-8); SQUAMOUS EPITHELIAL None Seen /hpf; URINE APPEARANCE Turbid; URINE BACTERIA Moderate /hpf; URINE BILIRUBIN Negative (NEGATIVE); URINE BLOOD 2+ (NEGATIVE); URINE COLOR Amber; URINE GLUCOSE Negative (NEGATIVE); URINE KETONE Negative (NEGATIVE); URINE LEUKOCYTE ESTERASE 2+ (NEGATIVE); URINE NITRATE Positive (NEGATIVE); URINE PROTEIN(semi-quant) 2+ (NEGATIVE); URINE RBC >50 /hpf; URINE UROBILINOGEN Negative (NEGATIVE)
[2020-05-09 16:07] VITALS: BP 176/70; PULSE 76; TEMP 98.5
--- NOTE | 2020-05-09 16:15 | NUR ---
Pt arrived to floor at this time via cart with ER staff. Transferred over to bed wit hassistance of two. Pt resting in bed, asking repeatedly about , explained visitor policy. Will continue to monitor.
[2020-05-09 16:24] LABS: CREATININE, serum 2.71 (0.66-1.25)
[2020-05-09 17:54] LABS: FRACTIONAL EXCRETION OF NA+ 3.2 %
--- NOTE | 2020-05-09 18:33 | NUR ---
Assessment charted. Resting in bed, has not set off bed alarm but requires reorientation every time in room. Urine is yellow with lots of seidment and hazy. Bed alarm on, will give bedside shift report to nightshift nurse who will resume care.
--- NOTE | 2020-05-09 19:12 | NUR ---
Received report from Linda. Seen patient awake in bed. He is alert, disoriented and confused. Linda RN, called his so patient can talk to her as he is becoming confused thinking his was with him in the room. Bed alarm on. On fall precautions.
[2020-05-09 21:23] VITALS: BP 143/65; PULSE 89; TEMP 99.9
--- NOTE | 2020-05-09 21:40 | NUR ---
Assesment done. Patient denies pain. Leach catheter draining hazy yellow urine. Patient denies pain. He is oriented to person and knows his birthday but he cannot tell where he is right now. Reorientation implemented.
[2020-05-09 21:43] VITALS: TEMP 98.1
--- NOTE | 2020-05-09 23:35 | NUR ---
Rounds done. Seen patient's blanket with some blood. Turned on the lights, saw patient having some nose bleed on his right nostril. Placed patient on a sitting position on bed and tried pinching his nose to stop the bleeding. Blood clots noted coming out. Vital signs taken. BP= 159/62, HR= 90, Temp=98, SPO2= 98% on room air, RR= 20. Patient denies pain. Tried calling Nancie DAVIS but no answer.
[2020-05-09 23:50] VITALS: BP 159/62; PULSE 90; TEMP 98
[2020-05-10] VITALS (8 sets, daily range): BP systolic 125–177; BP diastolic 47–76; PULSE 79–85; TEMP 97.7–100.4
--- NOTE | 2020-05-10 00:20 | NUR ---
At 0005H Nancie DAVIS called back and I informed her about the nose bleed of the patient. At 0010H, Nancie came in to see and assess the patient. She asked if patient had nose bleed in the past and the patient said yes. We tried to ask the patient to blow his nose to get the clots but patient refused. Re-checked his blood pressure and it was at 177/75. Nancie ordered Afrin nasal spray and Labetalol for his blood pressure.
--- NOTE | 2020-05-10 02:30 | NUR ---
Nose bleed has stopped. Patient is becoming more restless and confused. He was trying to get out of bed and wanting to go home. This nurse called Nancie DAVIS to ask for Ativan and she put an order in. Repositioned patient to bed and reoriented him. Side rails up and bed alarm maintained on all the time.
[2020-05-10 06:54] LABS: CALCIUM 8.5 mg/dL (8.4-10.2); CREATININE, serum 2.38 (0.66-1.25); POTASSIUM 4.6 mmol/L (3.4-5.0)
[2020-05-10 06:55] LABS: BASO % 0.2 % (0.0-2.0); EOS # 0.1 (0.0-0.7); EOS % 1.6 % (0-4.0); GRAN # 6.4 (1.4-6.5); GRAN % 71.5 % (42.2-75.2); HEMOGLOBIN 10.6 g/dl (13.5-18.0); LYMPH # 1.3 (1.2-3.4); LYMPH % 14.5 % (20.0-51.0); MEAN CELL VOLUME 92 fl (80.0-100.0); MEAN CORPUSCULAR HEMOGLOBIN 30 pg (27.0-31.0); MEAN CORPUSCULAR HGB CONC 33 g/dl (33.0-37.0); MEAN PLATELET VOLUME 9.2 fl (7.4-10.4); MONO % 11.5 % (1.7-9.3); PLATELET COUNT 166 K/mm3 (130-400); RED BLOOD COUNT 3.52 M/mm3 (4.20-5.60); REDCELL DISTRIBUTION WIDTH-CV 15.2 % (11.5-14.5)
--- NOTE | 2020-05-10 07:00 | NUR ---
Patient finally fell asleep at around 0430H. Nose bleed stopped already. Bed alarm on. Endorsed to day shift.
[2020-05-10 07:08] LABS: HEMATOCRIT 32.2 % (42.0-52.0)
--- NOTE | 2020-05-10 08:50 | NUR ---
PATIENT SHIFT ASSESSMENT COMPLETED AND MORNING MEDICATIONS ADMINISTERED AT THIS TIME. PATIENT SITTING UP IN THE BEDSIDE CHAIR. PATIENT DENIES PAIN AT THIS TIME. CALL LIGHT IN REACH AND BED ALARM ON.
--- NOTE | 2020-05-10 11:36 | NUR ---
The patient has underlying dementia. SW contacted the patient's , Colette (ph#[phone]), to discuss discharge plan. The patient lives in [place] with his at [facility]. Colette reports that the patient was independent with ADLs up until Thursday and that he has a cane and walker. He also receives home health services for long-term from [facility] and a RECREATION ASSISTANT comes two hours in the morning and two hours in the evening to assist the patient. Colette reports that the patient was receiving PT/OT/ST from them, but he graduated from those services. The patient's PCP is Dr. Destin Bermudez and he receives his medications from [facility]. Colette reports no difficulties obtaining his meds. The patient's DPOA-HC is in EMR and it designates his . PT/OT are recommending SNF/post-acute rehab. SW discussed this with Colette and the different options. Colette verbalized understanding and states that the patient will come home. She states that she was an MD OPHTHALMOLOGIST at [facility] and understands the recommendations, but she feels comfortable with the patient returning back home with her and resuming home health services from [facility]. ALIE updated the PA. ALIE contacted and faxed updates to Taryn at [facility]. Taryn reports that they can accept the patient for services. SW to continue to follow.
--- NOTE | 2020-05-10 12:30 | NUR ---
UPON ENTRY TO THE ROOM THE PATIENT IS SITTING UP IN THE CHAIR WITH HIS LUNCH TRAY. CLEAR DRAINAGE COMING FROM THE RIGHT NARE THAT WAS SLIGHTLY BLOOD TINGED WHEN PATIENT BLEW HIS NOSE. NO ADDITIONAL BLEEDING AFTER PATIENT BLEW HIS NOSE. WILL CONTINUE TO MONITOR.
--- NOTE | 2020-05-10 13:34 | NUR ---
First visit from the first sampler. No needs right now.
--- NOTE | 2020-05-10 19:00 | NUR ---
PATIENT HAD AN UNEVENTFUL SHIFT. PATIENT DENIED PAIN THROUGHOUT THE DAY. NEURO CHECKS STABLE. PATIENT IS A&O TO SELF. PATIENT IS INTERMITTENTLY ORIENTED TO TOWN AND YEAR, BUT NOT CONSISTENTLY. PATIENTS CONVERSATION IS CONFUSED, HE OCCASSIONALLY REACHES OUT IN THE AIR, AND HAS HALLUCINATIONS OF PEOPLE AND EVENTS THAT ARE NOT THERE. PATIENT ABLE TO FOLLOW COMMANDS. PATIENT IS PLEASANT. REPORT GIVEN TO ONCOMING NURSE.
--- NOTE | 2020-05-10 22:30 | NUR ---
PT IN BED. TAKES HS MEDS IN APPLESAUCE WITHOUT PROBLEM. IS ALERT TO SELF. PROVIDED CATHETER CARE AND SHAVE AT THIS TIME. HAS IVF INFUSING TO LEFT FOREARM WITHOUT PROBLEM. SCDS ON BILATERAL LOWER LEGS. OCCASIONALLY TALKING TO SELF AND HAVING HALLUCINATIONS OF PEOPLE NOT IN THE ROOM.
[2020-05-11] VITALS (7 sets, daily range): BP systolic 129–185; BP diastolic 56–97; PULSE 66–85; TEMP 97.5–98.6
--- NOTE | 2020-05-11 00:13 | NUR ---
PT BEING AGGRESSIVE, TRYING TO CLIMB OVER RAILS. THREATENS TO HIT STAFF. ORDER FOR CAROL ANN RECEIVED FROM LEYLA TREVINO. GIVEN AT THIS TIME.
--- NOTE | 2020-05-11 02:00 | NUR ---
RESTING WELL AFTER GIVEN HALDOL FOR AGITATION.
[2020-05-11 07:25] LABS: BASO % 0.4 % (0.0-2.0); CALCIUM 8.8 mg/dL (8.4-10.2); CREATININE, serum 1.79 (0.66-1.25); EOS # 0.5 (0.0-0.7); EOS % 5.9 % (0-4.0); GRAN % 64.1 % (42.2-75.2); HEMATOCRIT 31.8 % (42.0-52.0); HEMOGLOBIN 10.6 g/dl (13.5-18.0); LYMPH # 1.3 (1.2-3.4); LYMPH % 17.2 % (20.0-51.0); MEAN CELL VOLUME 90 fl (80.0-100.0); MEAN CORPUSCULAR HEMOGLOBIN 30 pg (27.0-31.0); MEAN CORPUSCULAR HGB CONC 33 g/dl (33.0-37.0); MEAN PLATELET VOLUME 8.9 fl (7.4-10.4); MONO # 0.9 (0.1-0.6); MONO % 11.8 % (1.7-9.3); PLATELET COUNT 173 K/mm3 (130-400); POTASSIUM 4.4 mmol/L (3.4-5.0); RED BLOOD COUNT 3.55 M/mm3 (4.20-5.60); REDCELL DISTRIBUTION WIDTH-CV 14.9 % (11.5-14.5)
--- NOTE | 2020-05-11 16:22 | NUR ---
THIS NURSE WAS ON THE PHONE WITH SUSAN HENRY REGARDING THE PATIENTS HEPARIN. WHEN THIS NURSE TURNED AROUND AT THE DESK TO LOOK INTO THE PATIENTS ROOM, HE PULLED OUT HIS IV AND TOSSED THE TUBING OFF THE BED. PATIENT REQUESTED SCD'S AND SOCKS BE TAKEN OFF. PATIENT SETTELED BACK IN BED. PATIENT STATES THAT HE IS CONFUSED. PATIENT RE-ORIENTED AND EDUCATED THAT A NEW IV WILL NEED TO BE PLACED FOR HIS IV ANTIBIOTICS AND FLUIDS TO TREAT HIS INFECTION. PATIENT VERBALIZES UNDERSTANDING.
--- NOTE | 2020-05-11 19:01 | NUR ---
PATIENT RESTING IN BED AND TALKING WITH HIS ON THE PHONE. PATIENT REFUSED DINNER. PATIENT DRINKING AN ENSURE CHOCOLATE SHAKE FOR DINNER. CALL LIGHT IN REACH. BED ALARM ON. BEDSIDE REPORT GIVEN TO WESTON BARILLAS.
--- NOTE | 2020-05-11 21:16 | NUR ---
PT STARTING TO RESIST CARES, CONFUSED TO PLACE AND TIME. SEROQUEL 25MG PO WITH HS MEDS.
--- NOTE | 2020-05-11 21:20 | NUR ---
PT TAKES CHOCOLATE PUDDING FED TO HIM WITH HIS PILLS. IS ELIM IRA, CONFUSED TO PLACE AND TIME. HAS IVF INFUSING TO LEFT FOREARM WITHOUT REDNESS OR SWELLING. IZAGUIRRE TO BSD WITH YELLOW URINE. BED ALARM ON FOR SAFETY.
--- NOTE | 2020-05-12 01:12 | NUR ---
Pt yelling out in his sleep, has eyes closed and appears in distress. Awakened by staff. More calm at this time.
--- NOTE | 2020-05-12 03:50 | NUR ---
PT AWAKE, CALLING OUT FOR OSIRIS. REMINDED PT WHERE HE WAS. VS OBTAINED. PT COMPLIANT WITH STAFF.
[2020-05-12 04:00] VITALS: BP 163/82; PULSE 80; TEMP 97.6
[2020-05-12 06:11] LABS: BASO % 0.3 % (0.0-2.0); EOS # 0.5 (0.0-0.7); EOS % 7.3 % (0-4.0); GRAN # 4.9 (1.4-6.5); GRAN % 65.7 % (42.2-75.2); HEMATOCRIT 30.8 % (42.0-52.0); HEMOGLOBIN 10.3 g/dl (13.5-18.0); LYMPH # 1.3 (1.2-3.4); LYMPH % 17.2 % (20.0-51.0); MEAN CELL VOLUME 89 fl (80.0-100.0); MEAN CORPUSCULAR HEMOGLOBIN 30 pg (27.0-31.0); MEAN CORPUSCULAR HGB CONC 33 g/dl (33.0-37.0); MEAN PLATELET VOLUME 8.4 fl (7.4-10.4); MONO # 0.6 (0.1-0.6); MONO % 8.7 % (1.7-9.3); PLATELET COUNT 192 K/mm3 (130-400); RED BLOOD COUNT 3.48 M/mm3 (4.20-5.60); REDCELL DISTRIBUTION WIDTH-CV 14.7 % (11.5-14.5)
[2020-05-12 06:31] LABS: CALCIUM 8.7 mg/dL (8.4-10.2); CREATININE, serum 1.73 (0.66-1.25); POTASSIUM 4.5 mmol/L (3.4-5.0)
[2020-05-12 07:32] VITALS: BP 140/49; PULSE 76; TEMP 98.3
--- NOTE | 2020-05-12 09:45 | NUR ---
Patient alert, intermittent confusion noted. See assessment. Leach catheter in place to dependent drainage, urine peach colored, no debris noted. No c/o at this time.
[2020-05-12] MEDS ORDERED: OMNICEF 300MG300 MG PO (11:03)
[2020-05-12 11:45] VITALS: BP 148/68; PULSE 77; TEMP 97.6
--- NOTE | 2020-05-12 11:46 | NUR ---
ALIE [facility]ed dc [facility] to [facility]. Patient will return home with at home on the independent living.
--- NOTE | 2020-05-12 13:26 | NUR ---
Discharge instructions reviewed with spouse. Discharged via wheelchair to auto/home with spouse at 1325. Patients spouse states he was admitted to the hospital with bilateral hearing aids. Upon discharge, on hearing aide in place. Quantros submitted.
--- NOTE | 2020-05-15 13:00 | NUR ---
Anesthetist spoke with Mark at [facility] who advised orders did not go through. SW refaxed orders.
== END 2020-05-12 13:25 | disposition home or self-care (01) | DRG 682 ==
LOC: COL.ER 09:48 → SURG 11:09
PROVIDERS: Emergency Medicine; Physician Assistant; ADMIT Internal Medicine
DX: N17.9 Acute kidney failure, unspecified (principal); G93.41 Metabolic encephalopathy; G92 Toxic encephalopathy; N39.0 Urinary tract infection, site not specified; I25.10 Atherosclerotic heart disease of native coronary artery without angina pectoris; E78.5 Hyperlipidemia, unspecified; E03.9 Hypothyroidism, unspecified; F32.9 Major depressive disorder, single episode, unspecified; Z66 Do not resuscitate; I12.9 Hypertensive chronic kidney disease with stage 1 through stage 4 chronic kidney disease, or unspecified chronic kidney disease; F03.90 Unspecified dementia, unspecified severity, without behavioral disturbance, psychotic disturbance, mood disturbance, and anxiety; N18.30 Chronic kidney disease, stage 3 unspecified; N40.1 Benign prostatic hyperplasia with lower urinary tract symptoms; R33.8 Other retention of urine; R04.0 Epistaxis; D64.9 Anemia, unspecified; Z95.5 Presence of coronary angioplasty implant and graft; Z87.891 Personal history of nicotine dependence; Z86.73 Personal history of transient ischemic attack (TIA), and cerebral infarction without residual deficits; Z79.82 Long term (current) use of aspirin
CPT/HCPCS: 99222-AI; 99232-AI; 99239; J0696; J1630; J1644; J2060; J2543; J7030; J7120

== ENCOUNTER 2020-05-16 11:32 | Emergency (ER) | payer MEDICARE ==
[~2020-05-16] VITALS: Ht 175.3 cm; Wt 75.0 kg
[~2020-05-16 11:32] MED LIST changes: +OMNICEF 300MG300 MG PO
[2020-05-16 11:47] VITALS: TEMP 98.1
[2020-05-16 12:38] LABS: BASO % 0.3 % (0.0-2.0); EOS # 0.3 (0.0-0.7); EOS % 2.4 % (0-4.0); GRAN # 9.6 (1.4-6.5); GRAN % 75.5 % (42.2-75.2); HEMOGLOBIN 11.3 g/dl (13.5-18.0); LYMPH # 1.5 (1.2-3.4); LYMPH % 11.8 % (20.0-51.0); MEAN CELL VOLUME 90 fl (80.0-100.0); MEAN CORPUSCULAR HEMOGLOBIN 31 pg (27.0-31.0); MEAN CORPUSCULAR HGB CONC 34 g/dl (33.0-37.0); MONO # 1.1 (0.1-0.6); MONO % 8.6 % (1.7-9.3); PLATELET COUNT 259 K/mm3 (130-400); REDCELL DISTRIBUTION WIDTH-CV 14.9 % (11.5-14.5)
[2020-05-16 12:40] LABS: HEMATOCRIT 33.3 % (42.0-52.0)
[2020-05-16 12:52] LABS: ALBUMIN 3.8 gm/dL (3.5-5.0); BILIRUBIN,TOTAL 0.4 mg/dL (0.0-1.0); C-REACTIVE PROTEIN 8.2 mg/dL (0.0-0.9); CALCIUM 9.1 mg/dL (8.4-10.2); CREATININE, serum 2.07 (0.66-1.25); POTASSIUM 4.7 mmol/L (3.4-5.0); TOTAL PROTEIN 6.9 gm/dL (6.4-8.2)
[2020-05-16 13:42] LABS: COLLECTION METHOD IN
[2020-05-16 13:51] LABS: HYALINE CAST >12 /lpf; MUCOUS Present /lpf; PH 5 (5-8); SQUAMOUS EPITHELIAL 0-2 /hpf; URINE APPEARANCE Hazy; URINE BACTERIA None Seen /hpf; URINE BILIRUBIN Negative (NEGATIVE); URINE BLOOD Negative (NEGATIVE); URINE COLOR Yellow; URINE GLUCOSE Negative (NEGATIVE); URINE KETONE Negative (NEGATIVE); URINE LEUKOCYTE ESTERASE 2+ (NEGATIVE); URINE NITRATE Negative (NEGATIVE); URINE PROTEIN(semi-quant) 1+ (NEGATIVE); URINE UROBILINOGEN Negative (NEGATIVE)
[2020-05-16 16:08] VITALS: BP 130/65; PULSE 80
== END 2020-05-16 16:30 | disposition home or self-care (01) ==
LOC: COL.ER 11:32
PROVIDERS: Nurse Practitioner Primary Care
DX: F02.80 Dementia in other diseases classified elsewhere, unspecified severity, without behavioral disturbance, psychotic disturbance, mood disturbance, and anxiety (principal); G30.9 Alzheimer's disease, unspecified; E78.5 Hyperlipidemia, unspecified; I25.10 Atherosclerotic heart disease of native coronary artery without angina pectoris; Z87.891 Personal history of nicotine dependence; Z90.89 Acquired absence of other organs; Z95.5 Presence of coronary angioplasty implant and graft; Z20.822 Contact with and (suspected) exposure to COVID-19; Z79.82 Long term (current) use of aspirin
CPT/HCPCS: J7030

== ENCOUNTER 2020-05-16 21:43 | Emergency (ER) | payer MEDICARE ==
[2020-05-16 21:50] VITALS: TEMP 97.9
[2020-05-17 02:30] VITALS: BP 164/88; PULSE 67
== END 2020-05-17 02:30 ==
LOC: COL.ER 21:43
DX: F03.90 Unspecified dementia, unspecified severity, without behavioral disturbance, psychotic disturbance, mood disturbance, and anxiety (principal); G30.9 Alzheimer's disease, unspecified; I10 Essential (primary) hypertension; E78.5 Hyperlipidemia, unspecified; I25.10 Atherosclerotic heart disease of native coronary artery without angina pectoris; Z87.891 Personal history of nicotine dependence; Z79.82 Long term (current) use of aspirin; W06.XXXA Fall from bed, initial encounter
CPT/HCPCS: J7030

== ENCOUNTER 2020-05-19 21:57 | Emergency (ER) | payer MEDICARE ==
[~2020-05-19] VITALS: Ht 175.3 cm; Wt 90.9 kg
[2020-05-19 21:59] VITALS: TEMP 98
[2020-05-19 22:25] LABS: BASO % 0.5 % (0.0-2.0); EOS # 0.3 (0.0-0.7); GRAN # 4.4 (1.4-6.5); GRAN % 69.2 % (42.2-75.2); LYMPH # 1.1 (1.2-3.4); LYMPH % 17.6 % (20.0-51.0); MEAN CELL VOLUME 88 fl (80.0-100.0); MEAN CORPUSCULAR HEMOGLOBIN 30 pg (27.0-31.0); MEAN CORPUSCULAR HGB CONC 34 g/dl (33.0-37.0); MEAN PLATELET VOLUME 8.3 fl (7.4-10.4); MONO # 0.5 (0.1-0.6); MONO % 7.1 % (1.7-9.3); PLATELET COUNT 274 K/mm3 (130-400); RED BLOOD COUNT 4.06 M/mm3 (4.20-5.60); REDCELL DISTRIBUTION WIDTH-CV 14.1 % (11.5-14.5)
[2020-05-19 22:30] LABS: HEMATOCRIT 35.8 % (42.0-52.0)
[2020-05-19 22:34] LABS: ALANINE AMINOTRANSFERASE 30 U/L (4-49); ALBUMIN 4.3 gm/dL (3.5-5.0); ALKALINE PHOSPHATASE 89 U/L (50-136); ANION GAP 11 mmol/L (7-16); AST,SGOT 32 U/L (15-37); BILIRUBIN,TOTAL 0.5 mg/dL (0.0-1.0); BLOOD UREA NITROGEN 32 mg/dL (9-20); CALCIUM 9.2 mg/dL (8.4-10.2); CARBON DIOXIDE 23 mmol/L (22-30); CHLORIDE 104 mmol/L (98-107); CREATININE, serum 2.04 (0.66-1.25); GLUCOSE 110 mg/dL (74-106); POTASSIUM 4.4 mmol/L (3.4-5.0); SODIUM 138 mmol/L (137-145); TOTAL PROTEIN 7.7 gm/dL (6.4-8.2)
[2020-05-19 22:44] LABS: COLLECTION METHOD IN
[2020-05-19 22:46] LABS: TROPONIN-I < 0.012 ng/mL (0.000-0.035)
[2020-05-19 22:54] LABS: MUCOUS Present /lpf; PH 5 (5-8); SQUAMOUS EPITHELIAL 0-2 /hpf; URINE APPEARANCE Clear; URINE BACTERIA Rare /hpf; URINE BILIRUBIN Negative (NEGATIVE); URINE BLOOD Negative (NEGATIVE); URINE COLOR Straw; URINE GLUCOSE Negative (NEGATIVE); URINE KETONE Negative (NEGATIVE); URINE LEUKOCYTE ESTERASE 1+ (NEGATIVE); URINE NITRATE Negative (NEGATIVE); URINE PROTEIN(semi-quant) Negative (NEGATIVE); URINE UROBILINOGEN Negative (NEGATIVE)
[2020-05-20 02:04] VITALS: BP 153/86; PULSE 70
== END 2020-05-20 02:30 | disposition home or self-care (01) ==
LOC: COL.ER 21:57
PROVIDERS: Emergency Medicine
DX: F03.90 Unspecified dementia, unspecified severity, without behavioral disturbance, psychotic disturbance, mood disturbance, and anxiety (principal); E03.9 Hypothyroidism, unspecified; Z86.73 Personal history of transient ischemic attack (TIA), and cerebral infarction without residual deficits; Z87.891 Personal history of nicotine dependence; Z79.890 Hormone replacement therapy; Z79.82 Long term (current) use of aspirin
CPT/HCPCS: J0696; J7030

== ENCOUNTER → 2020-06-13 | Outpatient (REF) ==
[2020-06-13 18:27] LABS: COLLECTION METHOD CLEAN CATCH
[2020-06-13 18:39] LABS: PH 5 (5-8); SQUAMOUS EPITHELIAL None Seen /hpf; URINE APPEARANCE Turbid; URINE BACTERIA None Seen /hpf; URINE BILIRUBIN Negative (NEGATIVE); URINE BLOOD 2+ (NEGATIVE); URINE COLOR Yellow; URINE GLUCOSE Negative (NEGATIVE); URINE KETONE Negative (NEGATIVE); URINE LEUKOCYTE ESTERASE 2+ (NEGATIVE); URINE NITRATE Negative (NEGATIVE); URINE PROTEIN(semi-quant) 2+ (NEGATIVE); URINE RBC >50 /hpf; URINE UROBILINOGEN Negative (NEGATIVE); URINE WBC >50 /hpf
== END ==
LOC: ZLAB.STJ 18:25
PROVIDERS: Internal Medicine
DX: Z01.89 Encounter for other specified special examinations (principal)

== ENCOUNTER → 2020-07-09 | Outpatient (CLI) | payer MEDICARE ==
[~2020-07-09] MED LIST changes: +PROAMATINE2.5 MG PO; +SYSTANE BALANCE10 M1 OP; +TYLENOL 500MG500 MG PO
[2020-07-09 14:22] LABS: COLLECTION METHOD CATHETER
[2020-07-09 14:39] LABS: PH 5 (5-8); SQUAMOUS EPITHELIAL None Seen /hpf; URINE APPEARANCE Turbid; URINE BACTERIA Rare /hpf; URINE BILIRUBIN Negative (NEGATIVE); URINE BLOOD 1+ (NEGATIVE); URINE COLOR Yellow; URINE GLUCOSE Negative (NEGATIVE); URINE KETONE Negative (NEGATIVE); URINE LEUKOCYTE ESTERASE 1+ (NEGATIVE); URINE NITRATE Negative (NEGATIVE); URINE PROTEIN(semi-quant) 2+ (NEGATIVE); URINE RBC None Seen /hpf; URINE UROBILINOGEN Negative (NEGATIVE); URINE WBC >50 /hpf
== END ==
LOC: ZLAB.STJ 13:34
PROVIDERS: Internal Medicine
DX: R82.90 Unspecified abnormal findings in urine (principal)

== ENCOUNTER → 2020-08-29 | Outpatient (CLI) | payer MEDICARE ==
[2020-08-29 12:40] LABS: COLLECTION METHOD CLEAN CATCH
[2020-08-29 12:54] LABS: MUCOUS Present /lpf; PH 5 (5-8); SQUAMOUS EPITHELIAL 0-2 /hpf; URINE APPEARANCE Cloudy; URINE BACTERIA Many /hpf; URINE BILIRUBIN Negative (NEGATIVE); URINE BLOOD Negative (NEGATIVE); URINE CALCIUM OXALATE CRYSTAL Present /hpf; URINE COLOR Yellow; URINE GLUCOSE Negative (NEGATIVE); URINE KETONE Negative (NEGATIVE); URINE LEUKOCYTE ESTERASE 3+ (NEGATIVE); URINE NITRATE Positive (NEGATIVE); URINE PROTEIN(semi-quant) 1+ (NEGATIVE); URINE UROBILINOGEN Negative (NEGATIVE)
== END ==
LOC: ZLAB.STJ 11:37
PROVIDERS: Internal Medicine
DX: N39.0 Urinary tract infection, site not specified (principal)

== ENCOUNTER 2020-09-30 00:23 | Emergency (ER) | payer MEDICARE ==
[~2020-09-30] VITALS: Ht 175.3 cm; Wt 79.5 kg
[~2020-09-30 00:23] MED LIST changes: -PROAMATINE2.5 MG PO; -SYSTANE BALANCE10 M1 OP; -TYLENOL 500MG500 MG PO
[2020-09-30 02:41] LABS: BASO % 0.4 % (0.0-2.0); EOS # 0.3 (0.0-0.7); EOS % 3.4 % (0-4.0); GRAN # 5.7 (1.4-6.5); GRAN % 63.6 % (42.2-75.2); HEMOGLOBIN 11.7 g/dl (13.5-18.0); LYMPH # 2.1 (1.2-3.4); LYMPH % 22.9 % (20.0-51.0); MEAN CELL VOLUME 90 fl (80.0-100.0); MEAN CORPUSCULAR HEMOGLOBIN 30 pg (27.0-31.0); MEAN CORPUSCULAR HGB CONC 33 g/dl (33.0-37.0); MEAN PLATELET VOLUME 9.5 fl (7.4-10.4); MONO # 0.8 (0.1-0.6); MONO % 9.3 % (1.7-9.3); PLATELET COUNT 177 K/mm3 (130-400); RED BLOOD COUNT 3.88 M/mm3 (4.20-5.60); REDCELL DISTRIBUTION WIDTH-CV 15.1 % (11.5-14.5)
[2020-09-30 02:53] LABS: ALANINE AMINOTRANSFERASE 12 U/L (4-49); ALKALINE PHOSPHATASE 69 U/L (50-136); ANION GAP 10 mmol/L (7-16); AST,SGOT 21 U/L (15-37); BILIRUBIN,TOTAL 0.4 mg/dL (0.0-1.0); BLOOD UREA NITROGEN 31 mg/dL (9-20); CALCIUM 9.1 mg/dL (8.4-10.2); CARBON DIOXIDE 21 mmol/L (22-30); CHLORIDE 107 mmol/L (98-107); CREATINE KINASE 37 U/L (55-170); CREATININE, serum 1.67 (0.66-1.25); GLUCOSE 83 mg/dL (74-106); POTASSIUM 4.3 mmol/L (3.4-5.0); SODIUM 138 mmol/L (137-145); TOTAL PROTEIN 6.9 gm/dL (6.4-8.2)
[2020-09-30 03:06] LABS: TROPONIN-I < 0.012 ng/mL (0.000-0.035)
[2020-09-30 04:03] VITALS: BP 136/83; PULSE 67; TEMP 98.6
== END 2020-09-30 04:03 | disposition home or self-care (01) ==
LOC: COL.ER 00:23
PROVIDERS: Emergency Medicine
DX: F03.90 Unspecified dementia, unspecified severity, without behavioral disturbance, psychotic disturbance, mood disturbance, and anxiety (principal); M54.5 Low back pain; I12.9 Hypertensive chronic kidney disease with stage 1 through stage 4 chronic kidney disease, or unspecified chronic kidney disease; N18.30 Chronic kidney disease, stage 3 unspecified; E78.5 Hyperlipidemia, unspecified; E03.9 Hypothyroidism, unspecified; Z86.73 Personal history of transient ischemic attack (TIA), and cerebral infarction without residual deficits; Z86.16 Personal history of COVID-19; Z79.890 Hormone replacement therapy; W19.XXXA Unspecified fall, initial encounter; Y92.129 Unspecified place in nursing home as the place of occurrence of the external cause

== ENCOUNTER → 2020-10-22 | Outpatient (CLI) | payer MEDICARE ==
[~2020-10-22] MED LIST changes: +PROAMATINE2.5 MG PO; +SYSTANE BALANCE10 M1 OP; +TYLENOL 500MG500 MG PO
[2020-10-22 23:34] LABS: COLLECTION METHOD CLEAN CATCH
[2020-10-22 23:49] LABS: PH 5 (5-8); SQUAMOUS EPITHELIAL None Seen /hpf; URINE APPEARANCE Turbid; URINE BACTERIA None Seen /hpf; URINE BILIRUBIN Negative (NEGATIVE); URINE BLOOD 1+ (NEGATIVE); URINE CALCIUM OXALATE CRYSTAL Present /hpf; URINE GLUCOSE Negative (NEGATIVE); URINE KETONE Negative (NEGATIVE); URINE LEUKOCYTE ESTERASE 2+ (NEGATIVE); URINE NITRATE Negative (NEGATIVE); URINE PROTEIN(semi-quant) 2+ (NEGATIVE); URINE UROBILINOGEN Negative (NEGATIVE)
[2020-10-22 23:50] LABS: URINE COLOR Yellow
== END ==
LOC: ZCOL.LAB 22:31
PROVIDERS: Internal Medicine
DX: R82.90 Unspecified abnormal findings in urine (principal)

== ENCOUNTER 2020-10-26 05:36 | Observation (INO) | payer MEDICARE ==
[~2020-10-26] VITALS: Ht 175.3 cm; Wt 79.5 kg
[~2020-10-26 05:36] MED LIST changes: -PROAMATINE2.5 MG PO; -SYSTANE BALANCE10 M1 OP; -TYLENOL 500MG500 MG PO
[2020-10-26 06:32] LABS: BASO % 0.4 % (0.0-2.0); EOS # 0.2 (0.0-0.7); EOS % 3.1 % (0-4.0); GRAN # 5.2 (1.4-6.5); GRAN % 69.8 % (42.2-75.2); HEMOGLOBIN 10.3 g/dl (13.5-18.0); LYMPH # 1.3 (1.2-3.4); LYMPH % 16.9 % (20.0-51.0); MEAN CELL VOLUME 90 fl (80.0-100.0); MEAN CORPUSCULAR HEMOGLOBIN 29 pg (27.0-31.0); MEAN CORPUSCULAR HGB CONC 33 g/dl (33.0-37.0); MEAN PLATELET VOLUME 8.6 fl (7.4-10.4); MONO # 0.7 (0.1-0.6); PLATELET COUNT 251 K/mm3 (130-400); REDCELL DISTRIBUTION WIDTH-CV 13.6 % (11.5-14.5)
[2020-10-26 06:34] LABS: CALCIUM 8.9 mg/dL (8.4-10.2); CREATININE, serum 2.49 (0.66-1.25); POTASSIUM 4.1 mmol/L (3.4-5.0)
[2020-10-26 06:40] LABS: HEMATOCRIT 31.5 % (42.0-52.0)
[2020-10-26] MEDS ORDERED: PROAMATINE2.5 MG PO (08:02)
[2020-10-26] MEDS ORDERED: SYSTANE BALANCE10 M1 OP (08:03)
[2020-10-26] MEDS ORDERED: TYLENOL 500MG500 MG PO (08:05)
[2020-10-26 08:49] VITALS: BP 134/61; PULSE 68; TEMP 97.4
[2020-10-26 12:12] VITALS: BP 153/53; PULSE 66; TEMP 97.3
--- NOTE | 2020-10-26 15:13 | NUR ---
[employer] spoke with hospitalist who advised patient is ready to be discharged back to [facility] today. ALIE contacted Vincenzo at [facility] who advised patient is from [facility] and that they can accept patient back today. Transport time was set for 1530. ALIE contacted patient's , Colette (ph#[phone]) who is agreeable to patient discharging back to [facility] today. Patient's primary care physician is Dr. Bermudez and patient has Advance Directives in EMR which designates his , Colette as DPOA-HC. SW faxed discharge orders and clinical updates to [facility]. Vincenzo at [facility] advised they do not need a COVID swab prior to patient returning. Discharge Plan: [facility].
--- NOTE | 2020-10-26 15:15 | NUR ---
Patient has been resting in bed with at bedside most of the day. Patient has had urinary incontinence 3-4 times and staff has assisted him with bedpan use as well. Hospitalist spoke with patient and it was decided that the patient would be discharged back to [facility] and staff would be picking him up at approx. 1530.
== END 2020-10-26 15:51 ==
LOC: COL.ER 05:36 → MEDICAL 07:30
PROVIDERS: Emergency Medicine
DX: N39.0 Urinary tract infection, site not specified (principal); B95.2 Enterococcus as the cause of diseases classified elsewhere; B96.1 Klebsiella pneumoniae [K. pneumoniae] as the cause of diseases classified elsewhere; I10 Essential (primary) hypertension; N18.5 Chronic kidney disease, stage 5; F01.50 Vascular dementia, unspecified severity, without behavioral disturbance, psychotic disturbance, mood disturbance, and anxiety; Z95.1 Presence of aortocoronary bypass graft; Z79.890 Hormone replacement therapy; Z79.899 Other long term (current) drug therapy; Z79.82 Long term (current) use of aspirin; Z87.891 Personal history of nicotine dependence; Z86.73 Personal history of transient ischemic attack (TIA), and cerebral infarction without residual deficits
CPT/HCPCS: G0378; J0696; J7030

== ENCOUNTER → 2020-11-07 | Outpatient (REF) ==
[~2020-11-07] MED LIST changes: +PROAMATINE2.5 MG PO; +SYSTANE BALANCE10 M1 OP; +TYLENOL 500MG500 MG PO
[2020-11-07 17:22] LABS: COLLECTION METHOD CLEAN CATCH
[2020-11-07 17:49] LABS: PH 6 (5-8); SQUAMOUS EPITHELIAL 0-2 /hpf; URINE APPEARANCE Hazy; URINE BACTERIA None Seen /hpf; URINE BILIRUBIN Negative (NEGATIVE); URINE BLOOD 2+ (NEGATIVE); URINE COLOR Yellow; URINE GLUCOSE Negative (NEGATIVE); URINE KETONE Negative (NEGATIVE); URINE LEUKOCYTE ESTERASE 3+ (NEGATIVE); URINE NITRATE Negative (NEGATIVE); URINE PROTEIN(semi-quant) Negative (NEGATIVE); URINE UROBILINOGEN Negative (NEGATIVE)
[2020-11-07 18:18] LABS: PRE ALBUMIN 32.6 mg/dL (17.6-36.0)
[2020-11-07 19:33] LABS: THYROID STIMULATING HORMONE 3.79 uIU/mL (0.465-4.680)
== END ==
LOC: ZLAB.STJ 17:11
PROVIDERS: Internal Medicine
DX: N18.30 Chronic kidney disease, stage 3 unspecified (principal); D63.1 Anemia in chronic kidney disease; N39.0 Urinary tract infection, site not specified

== ENCOUNTER → 2020-11-21 | Outpatient (CLI) | payer MEDICARE ==
[2020-11-21 12:24] LABS: BASO % 0.5 % (0.0-2.0); EOS # 0.2 (0.0-0.7); EOS % 3.3 % (0-4.0); GRAN # 3.6 (1.4-6.5); GRAN % 59.6 % (42.2-75.2); HEMOGLOBIN 10.2 g/dl (13.5-18.0); LYMPH # 1.5 (1.2-3.4); LYMPH % 25.3 % (20.0-51.0); MEAN CELL VOLUME 93 fl (80.0-100.0); MEAN CORPUSCULAR HEMOGLOBIN 30 pg (27.0-31.0); MEAN CORPUSCULAR HGB CONC 32 g/dl (33.0-37.0); MEAN PLATELET VOLUME 10.3 fl (7.4-10.4); MONO # 0.6 (0.1-0.6); MONO % 10.1 % (1.7-9.3); PLATELET COUNT 171 K/mm3 (130-400); RED BLOOD COUNT 3.38 M/mm3 (4.20-5.60); REDCELL DISTRIBUTION WIDTH-CV 15.1 % (11.5-14.5)
[2020-11-21 12:26] LABS: ALBUMIN 3.7 gm/dL (3.5-5.0); BILIRUBIN,TOTAL 0.4 mg/dL (0.0-1.0); CALCIUM 9.2 mg/dL (8.4-10.2); CREATININE, serum 2.23 (0.66-1.25); HEMATOCRIT 31.5 % (42.0-52.0); POTASSIUM 4.8 mmol/L (3.4-5.0); TOTAL PROTEIN 6.6 gm/dL (6.4-8.2)
== END ==
LOC: ZLAB.STJ 10:31
PROVIDERS: Internal Medicine
DX: N18.30 Chronic kidney disease, stage 3 unspecified (principal); D63.1 Anemia in chronic kidney disease

== ENCOUNTER → 2021-02-07 | Outpatient (CLI) | payer MEDICARE | LOC: ZLAB.STJ 15:08 | DX: E03.9 Hypothyroidism, unspecified (principal) ==

== ENCOUNTER → 2021-03-08 | Outpatient (CLI) | payer MEDICARE ==
[2021-03-08 17:16] LABS: COLLECTION METHOD CLEAN CATCH
[2021-03-08 17:31] LABS: MUCOUS Present /lpf; PH 6 (5-8); SQUAMOUS EPITHELIAL None Seen /hpf; URINE APPEARANCE Cloudy; URINE BACTERIA None Seen /hpf; URINE BILIRUBIN Negative (NEGATIVE); URINE BLOOD 3+ (NEGATIVE); URINE COLOR Red; URINE GLUCOSE Negative (NEGATIVE); URINE KETONE Negative (NEGATIVE); URINE LEUKOCYTE ESTERASE 1+ (NEGATIVE); URINE NITRATE Negative (NEGATIVE); URINE PROTEIN(semi-quant) 2+ (NEGATIVE); URINE RBC >50 /hpf; URINE UROBILINOGEN Negative (NEGATIVE)
== END ==
LOC: ZLAB.STJ 15:53
PROVIDERS: Family Medicine
DX: N39.0 Urinary tract infection, site not specified (principal)